=== PATIENT | female | born 1975 | race American Indian/Alaskan Native ===

== ENCOUNTER 2018-05-14 08:44 | Emergency (ER) | payer BC, OTHER ==
--- NOTE | 2018-05-14 08:53 | ED PDOC ---
Arrival/HPI <Richi Townsend - Last Filed: 05/14/18 12:34> - General Historian: Patient - History of Present Illness Time/Duration: 24 hours Symptom Onset: Gradual Symptom Course: Intermittent Quality: Stabbing Severity Level: 10 <Les Borden - Last Filed: 05/14/18 12:45> - General Time Seen by Provider: 05/14/18 08:51 - History of Present Illness Narrative History of Present Illness (Text): Patient is a 42 year old female with no significant past medical history presenting to the ED with right flank pain. She states that the pain started yesterday while she was at work and it was not bothering her that much. However she woke up from her sleep last night with a sharp pain in her right flank that radiates to the right back and 10/10 in severity. She states that the pain is worse when she moves and lying still makes the pain better. Her last menstrual period was 2 weeks ago, patient has been 4 times with 2 spontaneous abortions and 2 elective abortions. Disagree with triage diagnosis, patient denies chest pain or shortness of breath. She further denies having fevers, chills, headaches, dizziness, cough, abdominal pain, D/N/V, hematuria, dysuria, urinary frequency, or vaginal discharge. (Les Borden) Past Medical History - Provider Review Nursing Documentation Reviewed: Yes - Travel History Have you recently traveled outside [place] w/in the past 3 mons?: No - Past History Past History: No Previous <Les Borden - Last Filed: 05/14/18 12:45> Family/Social History - Physician Review Nursing Documentation Reviewed: Yes Family/Social History: Diabetes, Hypertension <Les Bordne - Last Filed: 05/14/18 12:45> Allergies/Home Meds <Richi Townsend - Last Filed: 05/14/18 12:34> <Les Borden - Last Filed: 05/14/18 12:45> Allergies/Adverse Reactions: Allergies No Known Allergies Allergy (Verified 05/14/18 08:54) Review of Systems - Physician Review All systems were reviewed & negative as marked: Yes - Review of Systems Constitutional: Normal. absent: Fatigue, Fevers, Night Sweats Eyes: Normal ENT: Normal Respiratory: Normal. absent: SOB, Cough, Sputum, Wheezing Cardiovascular: Normal. absent: Chest Pain, Palpitations Gastrointestinal: Normal. absent: Abdominal Pain, Stool Changes, Constipation, Diarrhea, Nausea, Vomiting, Anorexia Genitourinary Female: Normal. absent: Dysuria, Frequency, Hematuria, Urine Output Changes, Vaginal Bleeding, Vaginal Discharge Musculoskeletal: Back Pain (Right flank pain ) Skin: Normal. absent: Rash, Pruritis, Skin Lesions, Laceration Neurological: Normal. absent: Headache, Dizziness Psychiatric: Normal. absent: Anxiety, Depression <Les Borden - Last Filed: 05/14/18 12:45> Physical Exam Vital Signs Reviewed: Yes Temperature: Afebrile Blood Pressure: Hypertensive Pulse: Tachycardic Respiratory Rate: Normal Appearance: Positive for: Well-Appearing, Non-Toxic, Uncomfortable Pain Distress: Severe Mental Status: Positive for: Alert and Oriented X 3 - Systems Exam Head: Present: Atraumatic, Normocephalic Pupils: Present: PERRL Extroacular Muscles: Present: EOMI Conjunctiva: Present: Normal Mouth: Present: Moist Mucous Membranes Respiratory/Chest: Present: Clear to Auscultation, Good Air Exchange. No: Respiratory Distress, Accessory Muscle Use, Wheezes, Rales, Rhonchi Cardiovascular: Present: Normal S1, S2, Tachycardic. No: Murmurs, Rub, Gallop Abdomen: Present: Tenderness (Right upper quadrant mildly tender to palpation), Normal Bowel Sounds. No: Distention, Peritoneal Signs, McBurney's Point Tender , Rovsing's Sign Present Back: Present: CVA Tenderness (Right flank tenderness to palpation that radiates to the right lower back, CVA tender to palpation on the right). No: Midline Tenderness, Paraspinal Tenderness Upper Extremity: Present: Normal Inspection. No: Cyanosis, Edema Lower Extremity: Present: Normal Inspection. No: Edema Neurological: Present: GCS=15, CN II-XII Intact, Speech Normal Skin: Present: Warm, Dry, Normal Color. No: Rashes Psychiatric: Present: Alert, Oriented x 3, Normal Insight, Normal Concentration <Les Borden - Last Filed: 05/14/18 12:45> Vital Signs Temp Pulse Resp BP Pulse Ox 05/14/18 12:44 98.5 F 63 16 146/86 100 05/14/18 12:13 63 16 146/86 100 05/14/18 10:55 56 L 16 144/85 100 05/14/18 09:57 70 18 147/99 H 100 05/14/18 08:53 98.5 F 96 H 18 154/106 H 100 Medical Decision Making <Richi Townsend - Last Filed: 05/14/18 12:34> <Les Borden - Last Filed: 05/14/18 12:45> ED Course and Treatment: 05/14/18 11:00 Seen and examined with the resident. Our history and physical exam reveals a woman complaining of right flank pain and right lower back pain. No abdominal pain nausea vomiting or diarrhea. No genitourinary symptoms. No hematuria. No radiation of the pain. No fever or chills. No injury or trauma. 05/14/18 12:22 EKG shows normal sinus rhythm rate approximately [address] or T-wave changes. 05/14/18 12:34 Symptoms markedly improved post Toradol. Her blood pressure is markedly improved. She will be discharged home to follow with PMD. Follow up in ER as needed. (Richi Townsend) Impression: Patient is a 42 year old female presenting to the ED with right flank pain. Differential Diagnosis included but are not limited to: - Nephrolithiasis - Pyelonephritis - Ectopic Plan: -- CBC -- CMP -- CT abdomen w/o contrast -- Tylenol -- test -- UA -- Toradol -- IV fluids Progress Notes: 05/14/18 09:22 - Urinary test: Negative - WBC: WNL 05/14/18 10:21 - UA: positive for leukocyte esterase, urine WBC, and bacteria. Negative for nitrates. - CT abdomen: No obstructive uropathy, radiodense urolithiasis, or perinephric reaction bilaterally. Potential inflammatory bowel process on a chronic basis given submucosal fatty deposition throughout colon. Potential fibroid uterine changes. - Patient still complaining of pain, IV toradol ordered. NS IV bolus ordered. 05/14/18 12:42 - Patient is feeling better and instructed to follow up with her PMD. Patient is stable for discharge. (Les Borden) - Lab Interpretations Lab Results: 05/14/18 09:15 05/14/18 09:15 Lab Results 05/14/18 09:15: Sodium 140, Potassium 3.9, Chloride 106, Carbon Dioxide 26, Anion Gap 12, BUN 6 L, Creatinine 0.7, Est GFR ( Amer) > 60, Est GFR (Non -Af Amer) > 60, Random Glucose 88, Calcium 9.1, Total Bilirubin 0.9, AST 22, ALT 17, Alkaline Phosphatase 46, Total Protein 7.7, Albumin 4.4, Globulin 3.3, Albumin/Globulin Ratio 1.3 05/14/18 09:15: WBC 7.6, RBC 5.05, Hgb 13.0, Hct 38.1, MCV 75.4 L, MCH 25.7, MCHC 34.1, RDW 14.5, Plt Count 369, MPV 9.1, Gran % 67.2, Lymph % (Auto) 21.5 L , Russell % (Auto) 10.5 H, Eos % (Auto) 0.7 L, Baso % (Auto) 0.1, Gran # 5.10, Lymph # (Auto) 1.6, Russell # (Auto) 0.8 H, Eos # (Auto) 0.1, Baso # (Auto) 0.01 05/14/18 09:15: Urine Color Yellow, Urine Appearance Clear, Urine pH 7.0, Ur Specific [place] 1.015, Urine Protein Trace H, Urine Glucose (UA) Negative, Urine Ketones Trace H, Urine Blood Trace-intact H, Urine Nitrate Negative, Urine Bilirubin Negative, Urine Urobilinogen 0.2, Ur Leukocyte Esterase Small H , Urine RBC 2 - 5, Urine WBC 5 - 10, Ur Epithelial Cells 6 - 8, Amorphous Sediment Few, Urine Bacteria Many, Urine Other Uyeast - RAD Interpretation Radiology Orders: 05/14/18 09:12 ABD & PELVIS W/O PO OR IV CONT [CT] Stat - Medication Orders Current Medication Orders: Discontinued Medications Acetaminophen (Tylenol 325mg Tab) 650 mg PO STAT STA Stop: 05/14/18 09:14 Last Admin: 05/14/18 09:26 Dose: 650 mg MAR Pain/Vitals Document 05/14/18 09:26 [facility] [place]: 05/14/18 09:27 [facility] [id number] Pain Reassessment Is This A Pain ReAssessment? No Sleep Is patient sleeping during reassessment? No Presence of Pain Presence of Pain Yes Pain Scale Used Pain Scale Used Numeric Location Left, Right or Bilateral Right Description Constant Sharp Intensity 5 Sodium Chloride (Sodium Chloride 0.9%) 1,000 mls @ 999 mls/hr IV .Q1H1M STA Stop: 05/14/18 11:35 Last Admin: 05/14/18 10:55 Dose: 999 mls/hr eMAR Start Stop Document 05/14/18 10:55 [facility] (Rec: 05/14/18 10:55 [facility] [id number]) Intravenous Solution Start Date 05/14/18 Start Time 10:55 End Date 05/14/18 End time 11:56 Total Infusion Time 61 Ketorolac Tromethamine (Toradol) 15 mg IVP STAT STA Stop: 05/14/18 10:35 Last Admin: 05/14/18 10:53 Dose: 15 mg MAR Pain Assessment Document 05/14/18 10:53 [facility] (Rec: 05/14/18 10:54 [facility] [id number]) Pain Reassessment Is this a pain reassessment? Yes Sleep Is patient sleeping during reassessment? No Presence of Pain Presence of Pain Yes Pain Scale Used Pain Scale Used Numeric Description Intensity of Pain at present 6 IVP Administration Document 05/14/18 10:53 [facility] (Rec: 05/14/18 10:54 [facility] [id number]) Charges for Administration # of IVP Administrations 1 Disposition/Present on Arrival - Present on Arrival Any Indicators Present on Arrival: No History of DVT/PE: No History of Uncontrolled Diabetes: No Urinary Catheter: No History of Decub. Ulcer: No - Disposition Have Diagnosis and Disposition been Completed?: Yes Disposition Time: 12:35 Patient Plan: Discharge <Richi Townsend - Last Filed: 05/14/18 12:34> - Present on Arrival Any Indicators Present on Arrival: No History of DVT/PE: No History of Uncontrolled Diabetes: No Urinary Catheter: No History of Decub. Ulcer: No - Disposition Have Diagnosis and Disposition been Completed?: Yes Patient Plan: Discharge <Les Borden - Last Filed: 05/14/18 12:45> - Disposition Diagnosis: Low back pain Condition: IMPROVED Discharge Instructions (ExitCare): Low Back Pain in Adults Additional Instructions: Rest and moist heat. Follow-up with PMD. Follow up in ER as needed. Prescriptions: Cyclobenzaprine [Flexeril] 5 mg PO Q8 #15 tab Naproxen [Naprosyn] 500 mg PO BID #14 tab Forms: WORK NOTE
[2018-05-14 08:57] VITALS: TEMP 98.5; O2SAT 100
[2018-05-14 09:47] LABS: BASO # 0.01 K/mm3 (0.0-2.0); BASO % 0.1 % (0.0-3.0); EOS # 0.1 (0.0-0.7); EOS % 0.7 % (1.5-5.0); GRAN # 5.1 (1.4-6.5); GRAN % 67.2 % (50.0-68.0); LYMPH # 1.6 (1.2-3.4); LYMPH % 21.5 % (22.0-35.0); MEAN CELL VOLUME 75.4 fl (80.0-105.0); MEAN CORPUSCULAR HEMOGLOBIN 25.7 pg (25.0-35.0); MEAN CORPUSCULAR HGB CONC 34.1 g/dl (31.0-37.0); MEAN PLATELET VOLUME 9.1 fl (7.0-11.0); MONO # 0.8 (0.1-0.6); MONO % 10.5 % (1.0-6.0); RBC 5.05 10^6/uL (3.5-6.1); RED CELL DISTRIBUTION WIDTH 14.5 % (11.5-14.5); URINE BILIRUBIN NEGATIVE (NEGATIVE); URINE BLOOD TRACE-INTACT (NEGATIVE); URINE GLUCOSE (UA) NEGATIVE (NEGATIVE); URINE LEUKOCYTE ESTERASE SMALL Leu/uL (NEGATIVE); URINE PROTEIN TRACE mg/dL (<30 mg/dL); URINE UROBILINOGEN 0.2 E.U./dL (<1 E.U./dL); WHITE BLOOD COUNT 7.6 10^3/ul (4.5-11.0)
[2018-05-14 09:49] LABS: URINE APPEARANCE CLEAR (CLEAR); URINE COLOR YELLOW (YELLOW)
[2018-05-14 09:50] LABS: URINE BACTERIA MANY (NEG)
[2018-05-14 09:51] LABS: URINE AMORPHOUS SEDIMENT FEW
[2018-05-14 09:58] LABS: ALB/GLOB RATIO 1.3 (1.1-1.8); ALBUMIN 4.4 g/dL (3.0-4.8); ALT/SGPT 17 U/L (7-56); AST/SGOT 22 U/L (14-36); BLOOD UREA NITROGEN 6 mg/dL (7-21); CALCIUM 9.1 mg/dL (8.4-10.5); GFR NON-AFRICAN AMERICAN > 60
--- NOTE | 2018-05-14 10:25 | CT ---
Date of service: 05/14/2018 PROCEDURE: CT Abdomen and Pelvis without intravenous contrast HISTORY: Right flank pain r/o kidney stone COMPARISON: None. TECHNIQUE: Helical CT of the abdomen and pelvis was performed without oral or intravenous contrast as per referring physician request. Coronal and sagittal reformats were generated.. Contrast dose: None Radiation dose: Total exam DLP = 488.16 mGy-cm. This CT exam was performed using one or more of the following dose reduction techniques: Automated exposure control, adjustment of the mA and/or kV according to patient size, and/or use of iterative reconstruction technique. FINDINGS: LOWER THORAX: Unremarkable. LIVER: Unremarkable. No gross lesion or ductal dilatation. GALLBLADDER AND BILE DUCTS: Unremarkable. PANCREAS: Unremarkable. No gross lesion or ductal dilatation. SPLEEN: Unremarkable. ADRENALS: Unremarkable. No mass. KIDNEYS AND URETERS: No radiodense urolithiasis, perinephric fluid collection or obstructive uropathy is appreciate bilaterally. The bilateral ureters appear normal caliber overall. VASCULATURE: Unremarkable. No aortic aneurysm. BOWEL: Evaluation of the gastrointestinal tract is limited due the lack of oral contrast administration. Stomach is collapsed not well evaluated. There is no evidence of bowel obstruction throughout. Diffuse subcutaneous fat deposition is seen throughout the colon more so on the right than left stephon colon segments and may indicate inflammatory bowel process. Clinically correlate further. Small diverticulum is seen at the base of the cecum without local reactive change to suggest diverticulitis. APPENDIX: Retained radiodense material is seen in the lumen of the appendix nearly diffusely. No acute inflammatory changes related. PERITONEUM: Unremarkable. No free fluid. No free air. LYMPH NODES: Unremarkable. No enlarged lymph nodes. BLADDER: Decompressed and poorly evaluated. REPRODUCTIVE: Limited calcifications may indicate multiple uterine fibroids. BONES: No acute fracture. OTHER FINDINGS: None. IMPRESSION: 1. No obstructive uropathy, radiodense urolithiasis or perinephric reaction bilaterally. Urinary bladder is decompressed and poorly evaluated. 2. Potential inflammatory bowel process on a chronic basis given submucosal fatty deposition throughout the colon, right greater than left. Consider this as a potential etiology of patient's discomfort though no acute pericolic changes are appreciated throughout. Further clinical correlation is recommended. 3. Potential fibroid uterine changes.
[2018-05-14] MEDS ORDERED: Sodium Chloride 0.9% 1,000 ML IV STA (10:35)
[2018-05-14 10:56] VITALS: RESP 16
[2018-05-14 12:14] VITALS: BP 146/86; PULSE 63
--- NOTE | 2018-05-14 16:02 | CARD ---
APPROVED REPORT Date of service: 05/14/2018 EKG Measurement Heart [id number] <Conclusion> Normal sinus rhythm Normal ECG
== END 2018-05-14 12:47 | disposition home or self-care (01) ==
LOC: MERGE 08:44 → ED 08:44
DX: M54.5 Low back pain (principal)
CPT/HCPCS: 74176; 80053; 81001; 85025; 87086; 93005; 96361; 96374; 99284; J1885; J7030